=== PATIENT | male | born 1970 | race Two or more races ===

== ENCOUNTER 2024-03-09 10:30 | Inpatient (IN) | payer OTHER ==
[~2024-03-09] VITALS: Ht 162.6 cm; Wt 87.1 kg
[2024-03-09 12:14] VITALS: BP 129/80
[2024-03-13] MEDS ORDERED: PANTOPRAZOLE SO40 MG (08:03)
[2024-03-13] MEDS ORDERED: CEFTRIAXONE SODIUM 2,000 MG VIAL IV ONE (09:15)
[2024-03-13] MEDS ORDERED: METRONIDAZOLE/SODIUM CHLORIDE 500 MG/100 ML PIGGYBACK IV ONE (09:15)
[2024-03-13] MEDS ORDERED: LIDOCAINE HCL 1%/EPINEPHRINE 20ML VIAL IJ ONE (09:15)
[2024-03-13] MEDS ORDERED: BUPIVACAINE HCL 30 ML VIAL IJ ONE (09:15)
[2024-03-13] MEDS ORDERED: RINGERS SOLUTION,LACTATED 1,000 ML IV SCH (11:15)
[2024-03-13] MEDS ORDERED: MORPHINE SULFATE 4 MG/ML CARTRIDGE IV PRN (11:15)
[2024-03-13] MEDS ORDERED: OxyCODONE HCL 5 MG TABLET (ROXICODONE) PO PRN (11:15)
[2024-03-13] MEDS ORDERED: ONDANSETRON HCL 2 MG/ML VIAL IV PRN (11:15)
[2024-03-13] MEDS ORDERED: MORPHINE SULFATE 4 MG/ML VIAL IV ONE ×3 (11:40→12:25)
[2024-03-13] MEDS ORDERED: SUGAMMADEX SODIUM 200 MG/2 ML VIAL IV ONE (11:45)
[2024-03-13] MEDS ORDERED: ACETAMINOPHEN 500 MG GEL..CAP PO SCH (12:00)
[2024-03-13] MEDS ORDERED: HYOSCYAMINE SULFATE 0.125 MG TAB.SUBL SL SCH (13:00)
[2024-03-13] MEDS ORDERED: METRONIDAZOLE/SODIUM CHLORIDE 500 MG/100 ML PIGGYBACK IV SCH (13:00)
[2024-03-13 17:00] VITALS: BP 148/73; O2SAT 95
[2024-03-13] MEDS ORDERED: TAMSULOSIN HCL 0.4 MG CAP PO SCH (17:00)
[2024-03-13] MEDS ORDERED: LACTOBACILLUS ACIDOPHILUS 1 CAP CAP PO SCH (17:00)
[2024-03-13] MEDS ORDERED: GABAPENTIN 300 MG CAPSULE PO SCH (17:00)
[2024-03-13] MEDS ORDERED: CIPROFLOXACIN IN 5 % DEXTROSE 400 MG/200 ML PIGGYBAG IV SCH (17:00)
[2024-03-13] MEDS ORDERED: FAMOTIDINE/PF 20 MG/2 ML VIAL IV PUSH SCH (21:00)
[2024-03-14 00:37] VITALS: BP 121/60; O2SAT 98
[2024-03-14 08:00] VITALS: BP 144/69; O2SAT 100
[2024-03-14 08:07] LABS: HEMATOCRIT 39.5 % (39.0-48.0); HEMOGLOBIN 13.4 g/dL (13-16.00); MEAN CELL VOLUME 85.1 fL (80.0-100.00); MEAN CORPUSCULAR HEMOGLOBIN 28.9 pg (27.00-32.0); PLATELET COUNT 197 K/uL (150-450); RED BLOOD COUNT 4.65 M/uL (4.00-6.00); RED CELL DISTRIBUTION WIDTH 13.5 % (11.5-14.5)
[2024-03-14 08:45] LABS: ALBUMIN 3.3 gm/dL (3.4-5.0); CALCIUM 8.8 mg/dL (8.5-10.1); CREATININE SERUM 0.91 mg/dL (0.70-1.30); GFR 87.49; PHOSPHOROUS 3.1 mg/dL (2.5-4.9); POTASSIUM 4.21 mEq/L (3.5-5.1)
[2024-03-14 16:34] VITALS: BP 129/69; O2SAT 97
[2024-03-14] MEDS ORDERED: ENOXAPARIN SODIUM 40 MG/0.4 ML SYRINGE SUBCUTANEO SCH (17:00)
[2024-03-15 00:05] VITALS: BP 123/76; O2SAT 98
[2024-03-15 08:01] LABS: HEMATOCRIT 38.9 % (39.0-48.0); HEMOGLOBIN 13.4 g/dL (13-16.00); MEAN CORPUSCULAR HGB CONC 34.5 g/dl (32.0-36.0); PLATELET COUNT 227 K/uL (150-450); RED BLOOD COUNT 4.64 M/uL (4.00-6.00); RED CELL DISTRIBUTION WIDTH 13.8 % (11.5-14.5)
[2024-03-15 08:15] VITALS: BP 126/78; O2SAT 96
[2024-03-15 08:46] LABS: CALCIUM 9.2 mg/dL (8.5-10.1); CREATININE SERUM 0.98 mg/dL (0.70-1.30); GFR 80.32; MAGNESIUM 2.1 mg/dL (1.8-2.4); PHOSPHOROUS 2.1 mg/dL (2.5-4.9); POTASSIUM 4.46 mEq/L (3.5-5.1)
[2024-03-15] MEDS ORDERED: ENOXAPARIN SODIUM 40 MG/0.4 ML SYRINGE SUBCUTANEO SCH (09:00)
[2024-03-15] MEDS ORDERED: POTASSIUM PHOS,M-BASIC-D-BASIC 3 MM/ML VIAL IV NR (09:15)
[2024-03-15] MEDS ORDERED: MULTIVIT INFUSN,ADULT 4,VIT K 10 ML VIAL IV NR (10:15)
[2024-03-15 16:00] VITALS: BP 136/88; O2SAT 97
[2024-03-16] VITALS: BP 131/73; O2SAT 97
[2024-03-16] MEDS ORDERED: AA 4.25%/CALCIUM/LYTES/DEX 10% 1,000 ML CENTRAL SCH ×2 (05:30→17:00)
[2024-03-16 06:56] LABS: HEMATOCRIT 35.3 % (39.0-48.0); HEMOGLOBIN 12.2 g/dL (13-16.00); MEAN CELL VOLUME 83.8 fL (80.0-100.00); MEAN CORPUSCULAR HEMOGLOBIN 29.1 pg (27.00-32.0); MEAN CORPUSCULAR HGB CONC 34.7 g/dl (32.0-36.0); PLATELET COUNT 242 K/uL (150-450); RED BLOOD COUNT 4.21 M/uL (4.00-6.00); RED CELL DISTRIBUTION WIDTH 13.5 % (11.5-14.5)
[2024-03-16 07:35] LABS: CALCIUM 8.7 mg/dL (8.5-10.1); CREATININE SERUM 0.92 mg/dL (0.70-1.30); GFR 86.39; MAGNESIUM 2.1 mg/dL (1.8-2.4); PHOSPHOROUS 3.4 mg/dL (2.5-4.9); POTASSIUM 4.29 mEq/L (3.5-5.1)
[2024-03-16 08:00] VITALS: BP 136/86; O2SAT 97
[2024-03-16 15:20] LABS: CHOL HDL RATIO 3.2 (0-5.0)
[2024-03-16 16:54] VITALS: BP 157/74; O2SAT 98
[2024-03-16] MEDS ORDERED: AA 5 %/CALCIUM/LYTES/DEXT 20 % 2,000 ML CENTRAL SCH (17:00)
[2024-03-17 00:15] VITALS: BP 146/77; O2SAT 98
[2024-03-17 08:00] VITALS: BP 138/84; O2SAT 96
[2024-03-17 16:22] VITALS: BP 147/85; O2SAT 98
[2024-03-18 02:07] VITALS: BP 105/54; O2SAT 97
[2024-03-18 08:47] VITALS: BP 127/77; O2SAT 96
[2024-03-18] MEDS ORDERED: levoFLOXacin IN DEXTROSE 5 % 5 MG/ML PIGGYBAG IV SCH (09:00)
[2024-03-18 16:59] VITALS: BP 126/65; O2SAT 98
[2024-03-19] VITALS: BP 122/59; O2SAT 98
[2024-03-19 05:10] VITALS: BP 98/66; O2SAT 95
[2024-03-19 09:54] VITALS: BP 138/77; O2SAT 98
[2024-03-19] MEDS ORDERED: HYOSCYAMINE0.125 M1 SL (13:02)
[2024-03-19] MEDS ORDERED: INTESTINEX680 M1 PO (13:02)
== END 2024-03-19 15:51 | disposition home or self-care (01) | DRG 330 ==
LOC: O/R 03-13 05:45 → SURG 03-13 10:30 → SURH 03-13 12:09 → SURG 03-13 13:00 → SURH 03-19 15:51
PROVIDERS: Internal Medicine Geriatric Medicine; ADMIT Surgery; ATTEND Surgery
PROC: 07BC4ZX Excision of Pelvis Lymphatic, Percutaneous Endoscopic Approach, Diagnostic (ICD-10-PCS; 2024-03-13)
PROC: 0DBF4ZZ Excision of Right Large Intestine, Percutaneous Endoscopic Approach (ICD-10-PCS; principal; 2024-03-13 13:00)
DX: C18.4 Malignant neoplasm of transverse colon (principal); C18.6 Malignant neoplasm of descending colon; K62.1 Rectal polyp
CPT/HCPCS: 44204; 38570; 44213; S2900

== ENCOUNTER 2024-03-25 17:21 | Inpatient (IN) | payer OTHER ==
[~2024-03-25] VITALS: Ht 162.6 cm; Wt 82.1 kg
[~2024-03-25 17:21] MED LIST: HYOSCYAMINE0.125 M1 SL; INTESTINEX680 M1 PO; PANTOPRAZOLE SO40 MG
--- NOTE | 2024-03-25 17:46 | NUR ---
PTE ALERTA Y ORIENTADO X3, REFIER EL 18 Feb FUE OPERADO DEL COLON POR . EN EL MAINE DE HOY REFIERE MUCHO DOLOR ABDOMINAL Y 3 VOMITOS. TAMBIEN REFIERE HOY NO A KAITLIN AL RENE. AL MOMENTO PULSO 127 LAT/MIN Y PRESION 97/65 [facility]. SE REALIZA EKG Y SE PRESENTA A . SE CONECTA A MONITOR CARDIACO Y OXIMETRIA DE PULSO CONTINUA.
[2024-03-25] MEDS ORDERED: RINGERS SOLUTION,LACTATED 1,000 ML IV SCH (18:00)
[2024-03-25] MEDS ORDERED: PIPERACILLIN/TAZOBACTAM SODIUM 3.375 GM VIAL IV ONE (18:00)
[2024-03-25] MEDS ORDERED: MORPHINE SULFATE 4 MG/ML VIAL IV ONE (18:00)
[2024-03-25] MEDS ORDERED: ONDANSETRON HCL 2 MG/ML VIAL IV ONE (18:00)
--- NOTE | 2024-03-25 18:15 | NUR ---
PTE MASCULINO EVALUADO POR . SE ORIENTA SOBRE ORDENES DE [place] REFIERE COMPRENDER. SE COLECTAN MUESTRAS DE LABORATORIOS Y SE CANALIZA VENA BAJO MEDIDAS ASEPTICAS. SE ADM,INISTRAN MEDICAMENTOS, BAJO MEDIDAS ASEPTICAS. SE NOTIFICA A RADIOLOGIA CT PENDIENTE. PTE EN MONITOR CARDIACO Y OXIMETRIA DE PULSO CONTINUA.
[2024-03-25 18:17] LABS: HEMATOCRIT 39.7 % (39.0-48.0); HEMOGLOBIN 13.6 g/dL (13-16.00); MEAN CELL VOLUME 83.2 fL (80.0-100.00); MEAN CORPUSCULAR HEMOGLOBIN 28.6 pg (27.00-32.0); MEAN CORPUSCULAR HGB CONC 34.3 g/dl (32.0-36.0); PLATELET COUNT 405 K/uL (150-450); RED BLOOD COUNT 4.78 M/uL (4.00-6.00); RED CELL DISTRIBUTION WIDTH 14.3 % (11.5-14.5)
[2024-03-25 18:32] LABS: INR 1.09; PARTIAL THROMBOPLASTIN TIME 26.6 SECONDS (22.0-34.0); PROTHROMBIN TIME 11.8 SECONDS (9.0-11.5)
[2024-03-25 18:53] LABS: ALBUMIN 3.4 gm/dL (3.4-5.0); BILIRUBIN TOTAL 8.16 mg/dL (0.3-1.2); CALCIUM 9.8 mg/dL (8.5-10.1); CREATININE SERUM 1.14 mg/dL (0.70-1.30); GFR 67.45; GLOBULINA 5.2 G/DL (2.4-3.5); POTASSIUM 4.83 mEq/L (3.5-5.1); TOTAL PROTEIN 8.6 gm/dL (6.4-8.2)
[2024-03-25 20:04] LABS: BILIRUBIN,CONJUGATED 5.71 mg/dL (0.0-0.2); BILIRUBIN,UNCONJUGATED 2.45 mg/dL (0.0-0.6)
[2024-03-25 20:07] LABS: URINE APPEARANCE Turbid; URINE BILIRRUBIN Large (NEGATIVE); URINE BLOOD Negative; URINE COLOR Orange; URINE GLUCOSE Negative (NEGATIVE); URINE KETONE Trace (NEGATIVE); URINE LEUKOCYTE Small; URINE NITRATE Positive
[2024-03-25 20:11] LABS: URINE BACTERIA 23.9 uL (0.0-1933); URINE EPITHELIAL CELLS 11.9 uL (0.0-38.8); URINE RBC 83.3 uL (0.0-20.8); URINE WBC 3.8 uL (0.0-23.2)
[2024-03-25 20:36] LABS: URINE CAST 0.15 uL (0.0-1.40); URINE CRYSTALS MANY /HPF; URINE PROTEIN 100 (NEGATIVE)
[2024-03-25] MEDS ORDERED: ONDANSETRON HCL 4 MG in 0.9 % SODIUM CHLORIDE 50 ML IV PRN (21:45)
[2024-03-25] MEDS ORDERED: MORPHINE SULFATE 4 MG/ML CARTRIDGE IV PRN (21:45)
[2024-03-25 22:34] LABS: ABG PH 7.447 (7.35-7.45); ABG PO2 83.6 mmHg (80-100); ABG pCO2 36.7 mmHg (35-45); BASE EXCESS 1.1 mmol/l; BICARBONATE 24.8 mmol/l (23-25); SaO2 96.7 %; Tco2 25.9 mmol/l
[2024-03-25 22:42] LABS: allen test SATISFACTORY; o2 21 %; puncture site RADIAL LEFT
[2024-03-26] MEDS ORDERED: PIPERACILLIN/TAZOBACTAM SODIUM 3.375 GM in DEXTROSE 5 % IN WATER 100 ML IV SCH
[2024-03-26 00:49] VITALS: BP 130/68; O2SAT 100
[2024-03-26 06:53] LABS: ALBUMIN 2.8 gm/dL (3.4-5.0); BILIRUBIN TOTAL 9.35 mg/dL (0.3-1.2); CHOL HDL RATIO 9.6 (0-5.0); TOTAL PROTEIN 7.7 gm/dL (6.4-8.2)
[2024-03-26 07:10] LABS: BILIRUBIN,CONJUGATED 5.23 mg/dL (0.0-0.2); BILIRUBIN,UNCONJUGATED 4.12 mg/dL (0.0-0.6)
[2024-03-26 08:40] VITALS: BP 132/82; O2SAT 98
[2024-03-26] MEDS ORDERED: PANTOPRAZOLE SODIUM 40 MG/VIAL VIAL IV SCH (09:00)
[2024-03-26] MEDS ORDERED: ENOXAPARIN SODIUM 40 MG/0.4 ML SYRINGE SUBCUTANEO SCH (09:00)
[2024-03-26 15:44] VITALS: BP 143/71; O2SAT 95
[2024-03-26] MEDS ORDERED: RINGERS SOLUTION,LACTATED 1,000 ML IV SCH (18:00)
[2024-03-26 19:53] VITALS: BP 160/77; O2SAT 98
[2024-03-27] VITALS (7 sets, daily range): BP systolic 144–168; BP diastolic 78–89; O2SAT 95–99
[2024-03-27 12:11] LABS: HEMATOCRIT 32.4 % (39.0-48.0); HEMOGLOBIN 10.7 g/dL (13-16.00); MEAN CELL VOLUME 84.6 fL (80.0-100.00); MEAN CORPUSCULAR HGB CONC 33.1 g/dl (32.0-36.0); PLATELET COUNT 330 K/uL (150-450); RED BLOOD COUNT 3.83 M/uL (4.00-6.00); RED CELL DISTRIBUTION WIDTH 14.3 % (11.5-14.5)
[2024-03-27 13:19] LABS: ALBUMIN 2.6 gm/dL (3.4-5.0); BILIRUBIN TOTAL 4.36 mg/dL (0.3-1.2); BILIRUBIN,CONJUGATED 3.17 mg/dL (0.0-0.2); BILIRUBIN,UNCONJUGATED 1.19 mg/dL (0.0-0.6); CALCIUM 8.9 mg/dL (8.5-10.1); CREATININE SERUM 0.71 mg/dL (0.70-1.30); GFR 116.5; GLOBULINA 3.6 G/DL (2.4-3.5); POTASSIUM 4.58 mEq/L (3.5-5.1); TOTAL PROTEIN 6.2 gm/dL (6.4-8.2)
[2024-03-27] MEDS ORDERED: PIPERACILLIN/TAZOBACTAM SODIUM 4.5 GM in DEXTROSE 5 % IN WATER 100 ML IV SCH (18:00)
[2024-03-27] MEDS ORDERED: MEPERIDINE HCL/PF 50 MG/ML VIAL IV PRN (21:15)
[2024-03-28] VITALS (8 sets, daily range): BP systolic 143–162; BP diastolic 83–84; O2SAT 90–99
[2024-03-28 17:01] LABS: AMYLASE 165 U/L (25-115)
[2024-03-28 17:10] LABS: LIPASE 524 U/L (13-75)
[2024-03-29] VITALS (9 sets, daily range): BP systolic 132–160; BP diastolic 77–80; O2SAT 95–100
[2024-03-30 00:18] VITALS: O2SAT 98
[2024-03-30 01:50] VITALS: BP 158/82; O2SAT 100
[2024-03-30 06:22] VITALS: O2SAT 90
[2024-03-30 08:27] VITALS: BP 136/82
[2024-03-30] MEDS ORDERED: IOVERSOL 320 MG/ML - 50 ML VIAL IV ONE (16:00)
[2024-03-30] MEDS ORDERED: GLUCAGON 1 MG VIAL IV ONE (16:00)
[2024-03-30] MEDS ORDERED: 0.9 % SODIUM CHLORIDE 1,000 ML IV SCH (16:15)
[2024-03-30] MEDS ORDERED: MEPERIDINE HCL/PF 25 MG/ML VIAL IV PRN (16:15)
[2024-03-31 00:15] VITALS: BP 112/61; O2SAT 100
[2024-03-31 06:34] LABS: HEMATOCRIT 28.1 % (39.0-48.0); HEMOGLOBIN 9.7 g/dL (13-16.00); MEAN CELL VOLUME 84.1 fL (80.0-100.00); MEAN CORPUSCULAR HEMOGLOBIN 29.1 pg (27.00-32.0); MEAN CORPUSCULAR HGB CONC 34.6 g/dl (32.0-36.0); PLATELET COUNT 380 K/uL (150-450); RED BLOOD COUNT 3.34 M/uL (4.00-6.00)
[2024-03-31 07:21] LABS: ALBUMIN 2.4 gm/dL (3.4-5.0); BILIRUBIN TOTAL 0.98 mg/dL (0.3-1.2); BILIRUBIN,CONJUGATED 0.76 mg/dL (0.0-0.2); BILIRUBIN,UNCONJUGATED 0.22 mg/dL (0.0-0.6); CALCIUM 8.5 mg/dL (8.5-10.1); CREATININE SERUM 0.62 mg/dL (0.70-1.30); GFR 136.23; GLOBULINA 3.2 G/DL (2.4-3.5); MAGNESIUM 2.2 mg/dL (1.8-2.4); PHOSPHOROUS 4.4 mg/dL (2.5-4.9); POTASSIUM 3.92 mEq/L (3.5-5.1); TOTAL PROTEIN 5.6 gm/dL (6.4-8.2)
[2024-03-31 07:23] LABS: C-REACTIVE PROTEIN 5.57 MG/DL (0.00-0.29)
[2024-03-31] MEDS ORDERED: PANTOPRAZOLE SODIUM 40 MG TABLET.DR PO SCH (07:30)
[2024-03-31 09:51] VITALS: BP 134/74; O2SAT 100
[2024-03-31] MEDS ORDERED: PEPCID AC20 MG PO (10:40)
[2024-03-31] MEDS ORDERED: HYOSCYAMINE0.125 M1 SL (10:41)
== END 2024-03-31 13:38 | disposition home or self-care (01) | DRG 439 ==
LOC: ER 17:23 → SEC-K 21:58 → MEDJ 21:58 → SURH 03-30 17:06
PROVIDERS: General Practice; Internal Medicine Gastroenterology; Internal Medicine Infectious Disease; ADMIT Surgery; ATTEND Surgery
PROC: BW21YZZ Computerized Tomography (CT Scan) of Abdomen and Pelvis using Other Contrast (ICD-10-PCS; 2024-03-25)
PROC: BF37ZZZ Magnetic Resonance Imaging (MRI) of Pancreas (ICD-10-PCS; 2024-03-25)
PROC: 02HV33Z Insertion of Infusion Device into Superior Vena Cava, Percutaneous Approach (ICD-10-PCS; 2024-03-26)
PROC: 4A12X4Z Monitoring of Cardiac Electrical Activity, External Approach (ICD-10-PCS; 2024-03-27)
PROC: 0F798ZZ Dilation of Common Bile Duct, Via Natural or Artificial Opening Endoscopic (ICD-10-PCS; 2024-03-30)
PROC: 0FC78ZZ Extirpation of Matter from Common Hepatic Duct, Via Natural or Artificial Opening Endoscopic (ICD-10-PCS; 2024-03-30)
PROC: 0F778ZZ Dilation of Common Hepatic Duct, Via Natural or Artificial Opening Endoscopic (ICD-10-PCS; 2024-03-30)
PROC: 0FC98ZZ Extirpation of Matter from Common Bile Duct, Via Natural or Artificial Opening Endoscopic (ICD-10-PCS; principal; 2024-03-30 07:00)
DX: K85.10 Biliary acute pancreatitis without necrosis or infection (principal); C18.9 Malignant neoplasm of colon, unspecified; K80.70 Calculus of gallbladder and bile duct without cholecystitis without obstruction; E80.6 Other disorders of bilirubin metabolism

== ENCOUNTER 2024-08-06 09:30 | Inpatient (IN) | payer OTHER ==
[~2024-08-06] VITALS: Ht 162.6 cm; Wt 87.5 kg
[~2024-08-06 09:30] MED LIST changes: +PEPCID AC20 MG PO
[2024-08-06 11:09] VITALS: BP 156/81
[2024-08-14] MEDS ORDERED: CEFTRIAXONE SODIUM 2,000 MG VIAL ONE (09:47)
[2024-08-14] MEDS ORDERED: METRONIDAZOLE/SODIUM CHLORIDE 500 MG/100 ML PIGGYBACK IV ONE ×2 (09:48→13:29)
[2024-08-14] MEDS ORDERED: MORPHINE SULFATE 4 MG/ML CARTRIDGE IV PRN (12:45)
[2024-08-14] MEDS ORDERED: OxyCODONE HCL 5 MG TABLET (ROXICODONE) PO PRN (12:45)
[2024-08-14] MEDS ORDERED: RINGERS SOLUTION,LACTATED 1,000 ML IV SCH (12:45)
[2024-08-14] MEDS ORDERED: ONDANSETRON HCL 2 MG/ML VIAL IV PRN (12:45)
[2024-08-14] MEDS ORDERED: FAMOTIDINE/PF 20 MG/2 ML VIAL IV PUSH SCH (12:46)
[2024-08-14] MEDS ORDERED: TAMSULOSIN HCL 0.4 MG CAP PO SCH (12:47)
[2024-08-14] MEDS ORDERED: CIPROFLOXACIN IN 5 % DEXTROSE 400 MG/200 ML PIGGYBAG IV SCH (12:48)
[2024-08-14] MEDS ORDERED: ACETAMINOPHEN 500 MG GEL..CAP PO SCH (12:48)
[2024-08-14] MEDS ORDERED: METRONIDAZOLE/SODIUM CHLORIDE 500 MG/100 ML PIGGYBACK IV SCH (12:48)
[2024-08-14] MEDS ORDERED: HYOSCYAMINE SULFATE 0.125 MG TAB.SUBL SL SCH (13:00)
[2024-08-14] MEDS ORDERED: MORPHINE SULFATE 4 MG/ML VIAL IV ONE ×2 (13:15→13:45)
[2024-08-14] MEDS ORDERED: CIPROFLOXACIN IN 5 % DEXTROSE 400 MG/200 ML PIGGYBAG IV ONE (13:28)
[2024-08-14] MEDS ORDERED: FAMOTIDINE/PF 20 MG/2 ML VIAL ONE (13:29)
[2024-08-14] MEDS ORDERED: ONDANSETRON HCL 2 MG/ML VIAL ONE (13:29)
[2024-08-14] MEDS ORDERED: ENALAPRILAT DIHYDRATE 1.25 MG/ML VIAL IV ONE (13:45)
[2024-08-14 14:38] VITALS: BP 145/80; O2SAT 95
[2024-08-14 16:00] VITALS: BP 134/80; O2SAT 94
[2024-08-14] MEDS ORDERED: GABAPENTIN 300 MG CAPSULE PO SCH (17:00)
[2024-08-15 07:24] LABS: HEMATOCRIT 43.6 % (39.0-48.0); MEAN CELL VOLUME 85.3 fL (80.0-100.00); MEAN CORPUSCULAR HEMOGLOBIN 29.3 pg (27.00-32.0); MEAN CORPUSCULAR HGB CONC 34.3 g/dl (32.0-36.0); PLATELET COUNT 158 K/uL (150-450); RED BLOOD COUNT 5.11 M/uL (4.00-6.00); RED CELL DISTRIBUTION WIDTH 14.7 % (11.5-14.5)
[2024-08-15 07:49] LABS: MAGNESIUM 2.2 mg/dL (1.8-2.4); PHOSPHOROUS 4.3 mg/dL (2.5-4.9)
[2024-08-15 07:53] LABS: ALBUMIN 3.7 gm/dL (3.4-5.0); BILIRUBIN TOTAL 1.18 mg/dL (0.3-1.2); CALCIUM 9.2 mg/dL (8.5-10.1); CREATININE SERUM 0.93 mg/dL (0.70-1.30); GFR 84.99; GLOBULINA 3.5 G/DL (2.4-3.5); POTASSIUM 4.56 mEq/L (3.5-5.1); TOTAL PROTEIN 7.2 gm/dL (6.4-8.2)
[2024-08-15 08:13] VITALS: BP 135/73; O2SAT 96
[2024-08-15] MEDS ORDERED: LACTOBACILLUS ACIDOPHILUS 1 CAP CAP PO SCH (09:00)
[2024-08-15] MEDS ORDERED: PEPCID AC20 MG PO (10:52)
[2024-08-15] MEDS ORDERED: TRAM1TAB98 PO (10:53)
[2024-08-15] MEDS ORDERED: ENOXAPARIN SODIUM 40 MG/0.4 ML SYRINGE SUBCUTANEO SCH (17:00)
[2024-08-16] MEDS ORDERED: ENOXAPARIN SODIUM 40 MG/0.4 ML SYRINGE SUBCUTANEO SCH (09:00)
== END 2024-08-15 11:53 | disposition home or self-care (01) | DRG 417 ==
LOC: O/R 08-14 06:10 → SURH 08-14 07:00
PROVIDERS: ADMIT Surgery; ATTEND Surgery
PROC: 0DNW4ZZ Release Peritoneum, Percutaneous Endoscopic Approach (ICD-10-PCS; 2024-08-14)
PROC: BF13YZZ Fluoroscopy of Gallbladder and Bile Ducts using Other Contrast (ICD-10-PCS; 2024-08-14)
PROC: 0FT44ZZ Resection of Gallbladder, Percutaneous Endoscopic Approach (ICD-10-PCS; principal; 2024-08-14 07:00)
DX: K80.10 Calculus of gallbladder with chronic cholecystitis without obstruction (principal); A41.9 Sepsis, unspecified organism; K85.10 Biliary acute pancreatitis without necrosis or infection; C18.4 Malignant neoplasm of transverse colon; C18.6 Malignant neoplasm of descending colon; K56.0 Paralytic ileus; R65.10 Systemic inflammatory response syndrome (SIRS) of non-infectious origin without acute organ dysfunction; K62.1 Rectal polyp; T81.89XA Other complications of procedures, not elsewhere classified, initial encounter; R59.0 Localized enlarged lymph nodes; Z85.038 Personal history of other malignant neoplasm of large intestine; Y65.8 Other specified misadventures during surgical and medical care; K66.0 Peritoneal adhesions (postprocedural) (postinfection)